=== PATIENT | male | born 1950 | race Caucasian/White ===

== ENCOUNTER 2017-10-28 10:17 | Emergency (ER) | payer BC ==
[~2017-10-28] VITALS: Ht 180.3 cm; Wt 110.0 kg
[2017-10-28 10:21] VITALS: BP 152/82; PULSE 106; RESP 20; TEMP 98; O2SAT 99
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
[2017-10-28] MEDS ORDERED: TETANUS/DIPHTHERIA TOXOID ADULT 0.5 ML VIAL IM ONE (11:30)
[2017-10-28] MEDS ORDERED: CEPHALEXIN MONOHYDRATE 500 MG CAP PO ONE (11:30)
[2017-10-28] MEDS ORDERED: LIDOCAINE 1%/EPINEPHrine 1:100,000 SOLN 20 ML VIAL INFIL ONE (11:30)
[2017-10-28] MEDS ORDERED: traMADol HCL 50 MG TAB PO ONE (11:30)
[2017-10-28] MEDS ORDERED: LIDOCAINE 1%/EPINEPHrine 1:100,000 SOLN 30 ML VIAL ONE (11:56)
[2017-10-28 12:31] VITALS: RESP 18
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
[2017-10-28] MEDS ORDERED: IBUP-232 PO (13:00)
[2017-10-28] MEDS ORDERED: TRAM50TA PO (13:00)
[2017-10-28] MEDS ORDERED: CEPH-460 PO (13:00)
[2017-10-28 13:18] VITALS: BP 134/74
== END 2017-10-28 13:18 | disposition home or self-care (01) ==
LOC: NEPD 10:17
DX: S91.011A Laceration without foreign body, right ankle, initial encounter (principal); V28.9XXA Unspecified motorcycle rider injured in noncollision transport accident in traffic accident, initial encounter; Z23 Encounter for immunization
CPT/HCPCS: 12002; 73610; 90471; 90714

== ENCOUNTER 2018-07-11 06:56 | Inpatient (IN) ==
[2018-07-11] MEDS ORDERED: Chlorhexidine Gluconate 2% 1 Pack (2 Cloths) TOPICAL ONE (08:45)
[2018-07-11] MEDS ORDERED: Chlorhexidine 4% Topical 120 APPLIC/120 ML Bottle TOPICAL SCH (08:45)
[2018-07-11] MEDS ORDERED: Sodium Chlor 0.9% Inj 500 ML IV.CONT ONE (08:45)
[2018-07-11] MEDS ORDERED: Metoprolol Tartrate 25 MG Tablet PO ONE (08:45)
[2018-07-11] MEDS ORDERED: Vancomycin Inj 1,000 MG in Sodium Chlor 0.9% Inj 250 ML IV.SIG SCH (09:00)
[2018-07-11] MEDS ORDERED: Sodium Chlor 0.9% Inj 40 ML, Bupivacaine Liposo PF 1.3% Inj 20 ML P-ARTICULR ONE ×2 (09:00)
[2018-07-11] MEDS ORDERED: TRANEXAMIC ACID IV.SIG SCH (09:00)
[2018-07-11] MEDS ORDERED: SODIUM CHLOR 0.9% IV.SIG SCH (09:00)
[2018-07-11] MEDS ORDERED: Famotidine PF Inj 20 MG/2 ML Vial ONE (09:43)
[2018-07-11] MEDS ORDERED: fentaNYL Citrate Inj 100 MCG/2 ML Ampul ONE (09:43)
[2018-07-11] MEDS ORDERED: fentaNYL Citrate Inj 250 MCG/5 ML Ampul ONE (09:43)
[2018-07-11] MEDS ORDERED: Ketamine Inj 50 MG/5 ML Syringe IV.PUSH ONE (10:09)
[2018-07-11] MEDS: ceFAZolin 2 GM Premix Inj 2 GM/50 ML PIGGYBACK IV.SIG SCH ×2 (10:09→16:10)
--- NOTE | 2018-07-11 13:34 | XR ---
EXAM DATE: 07/11/2018 12:41 PM EST AGE/SEX: 68 years / Male INDICATIONS: Right anterior hip replacement. CLINICAL DATA: This is the patient's initial encounter. Patient reports that signs and symptoms have been present for 1 day and indicates a pain score of Nonresponsive. MEDICAL/SURGICAL HISTORY: None. None. COMPARISON: . FINDINGS: Single view of the right hip demonstrates orthopedic hardware in excellent position. There is no evid ence of complication CONCLUSION: Orthopedic hardware in excellent position. Electronically signed by: Reggie Willis MD 07/11/2018 1:33 PM EST
[2018-07-11] MEDS ORDERED: Bisacodyl 10 MG Supp RECTAL PRN (14:04)
[2018-07-11] MEDS ORDERED: oxyCODONE/Acetaminophen 10/325 Tablet PO PRN (14:04)
[2018-07-11] MEDS ORDERED: Post-op Orders (for Pharmacy) OTHER STA (14:04)
[2018-07-11] MEDS ORDERED: HYDROmorphone PF Inj 1 MG/ML Ampul IV.PUSH PRN (14:04)
[2018-07-11] MEDS ORDERED: Aluminum/Magnesium/Simethacone Susp 30 ML UDC PO PRN (14:04)
[2018-07-11] MEDS ORDERED: ALPRAZolam 0.5 MG Tablet PO PRN (14:12)
[2018-07-11] MEDS ORDERED: Tranexamic Acid Inj 1,000 MG in Sodium Chlor 0.9% Inj 100 ML IV.SIG SCH (15:00)
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
[2018-07-11] MEDS: oxyCODONE/Acetaminophen 10/325 Tablet PO PRN (16:17)
[2018-07-11] MEDS: Multivitamin/Minerals Therapeutic Tablet PO SCH (20:30)
[2018-07-11] MEDS: Senna/Docusate Sodium 8.6/50 MG Tablet PO SCH (20:30)
[2018-07-11] MEDS ORDERED: Zolpidem Tartrate 5 MG Tablet PO PRN (21:00)
--- NOTE | 2018-07-11 21:27 | P.OP ---
- Preoperative Diagnosis (1) Osteoarthritis of right hip - Postoperative Diagnosis (1) Osteoarthritis of right hip Date of procedure: 07/11/18 Procedure: Right total hip arthroplasty-anterior approach Implants: [employer] Vinnie size 20 rosales femoral stem with a +8.536 mm ceramic femoral head and a 56 mm acetabular component with neutral polyethylene Anesthesia: MONIKA Surgeon: Jose Langford MD Outboard Motorboat Operator: Oseas Gallegos Estimated blood loss (mL): 500 Operation and Findings: The patient was brought to the operating room. He is placed under anesthesia. He was placed on a well-padded hand table. The right hip was prepped and draped in usual sterile fashion. IV antibiotics were given. Timeout was completed. Resident Care Spec films were obtained of the pelvis. We reviewed the preoperative workup films from the office which were present via computer in the operating room. We proceeded with anterior approach to the right hip. Meticulous hemostasis was achieved. This was taken down to the fascial layer. Incision was made overlying the fascia of the tensor fascia dayan. The anterior approach interval was performed with coagulation of the circumflex vessels. A capsulotomy was performed. A femoral neck cut was used with guidance from fluoroscopy. We proceeded to release the entire capsule along the neck superiorly and inferiorly and along the posterior surface to improve the femoral mobility. Deep retractors were placed about the acetabulum. The labrum was resected. We proceeded with subsequent sequential reaming of the acetabulum up to size 55 mm. We impacted a 56 mm Jewell acetabulum component. Hole eliminator was placed. A neutral polyethylene for 36 mm head was placed. We again evaluated fluoroscopically. We then maximally externally rotated the hip and dropped and crossed underneath the opposite limb. We proceeded with a box osteotome then a canal finder and then sequentially broaching with the small broach then multiple sizes all the way up to size 18. With the size [address] we did our trial reduction and assess our leg lengthening. Based on preoperative planning our ultimate goal would be to lengthen by 20 mm to stabilize and neutralize the pelvis. The local pole of the muscles would limit this maximum lengthening. In assessing the 18 mm trial wheeze appeared to lengthen by about 10 mm. And it did appear that we could go up in size. Therefore we did go up to 20 mm broach and ultimately the 20 mm prosthesis. Final prosthesis was placed. We assessed neck lengths and eventually the final product selected was the 8.5 mm length 36 mm ceramic femoral head. This was placed. We proceeded to inject long-acting Marcaine. We thoroughly irrigated out with copious amounts of irrigation. Hemostasis was very good. We then proceeded to close in layers of absorbable suture. Subcuticular on the skin. Steri-Strips applied. The patient was awoken and returned to recovery room in stable condition. The cement tester assistant is an advanced registered nurse practitioner. His skill set was medically necessary for the performance of the operation.
[2018-07-11] MEDS: ceFAZolin 1 GM Premix Inj 1 GM/50 ML FROZ.PIGGY IV.SIG SCH (22:07)
[2018-07-12] MEDS: ceFAZolin 1 GM Premix Inj 1 GM/50 ML FROZ.PIGGY IV.SIG SCH (03:20)
[2018-07-12] MEDS: oxyCODONE/Acetaminophen 10/325 Tablet PO PRN ×2 (03:21→14:10)
[2018-07-12 06:06] LABS: Hematocrit 30.5 % (39.0-51.0); Hemoglobin 10.8 gm/dL (13.0-17.0)
[2018-07-12 08:49] VITALS: RESP 18
[2018-07-12] MEDS: Senna/Docusate Sodium 8.6/50 MG Tablet PO SCH (09:37)
[2018-07-12] MEDS: Multivitamin/Minerals Therapeutic Tablet PO SCH (09:37)
--- NOTE | 2018-07-12 12:35 | P.PN ---
Subjective Interval history: Follow-up visit for right hip arthroplasty. Patient seen and examined resting in bed comfortably in no acute distress. He reports that he has been ambulating in his room as well as ambulated in the [place] with the assistance of physical therapy. He denies any shortness of breath, cough, chest pain, palpitations, fevers, chills, nausea, vomiting or diarrhea. He reports he and his vital signs taken shortly after walking the hallway. Physical Exam Vital signs: Vital Signs 07/11/18 13:16 07/11/18 13:30 07/11/18 13:45 Temperature 97.8 F Pulse Rate 118 H 106 H 102 H Respiratory Rate 14 14 13 Blood Pressure 139/80 142/76 H 142/80 H Pulse Oximetry 98 97 93 L 07/11/18 14:00 07/11/18 14:15 07/11/18 14:30 Temperature Pulse Rate 98 H 95 H 95 H Respiratory Rate 12 14 14 Blood Pressure 143/81 H 140/78 140/78 Pulse Oximetry 95 96 96 07/11/18 15:00 07/11/18 16:00 07/11/18 20:00 Temperature 97.6 F 97.6 F 97.8 F Pulse Rate 96 H 98 H 114 H Respiratory Rate 13 18 17 Blood Pressure 151/83 H 158/83 H 126/75 Pulse Oximetry 96 99 93 L 07/11/18 23:31 07/12/18 04:00 07/12/18 06:00 Temperature 98.7 F 98.5 F 98.5 F Pulse Rate 107 H 110 H 110 H Respiratory Rate 16 17 17 Blood Pressure 128/75 133/71 133/71 Pulse Oximetry 93 L 94 L 94 L 07/12/18 08:00 Temperature 98.1 F Pulse Rate 121 H Respiratory Rate 18 Blood Pressure 139/76 Pulse Oximetry 95 Intake & Output 07/11/18 07/12/18 07/12/18 18:59 06:59 18:59 Intake Total 3709.94 / 3709.94 100 / 100 Output Total 875 / 875 Balance 2834.94 / 2834.94 100 / 100 Weight 119.6 kg 124.3 kg Intake: IV 1167.94 / 1167.94 100 / 100 LR 1000 mL Inj 1,000 ML @ 80 600 / 600 mls/hr IV.CONT .[id number] [facility] Rx# :[id number] Cyklokapron Inj 1,794 MG In NS 117.94 / 117.94 Inj 100 ML @ 200 mls/hr IV.SIG ONCE [facility] Rx#:[id number] Vancomycin Inj 1,000 MG In NS 250 / 250 Inj 250 ML @ 250 mls/hr IV.SIG [employer] [facility] Rx#:[id number] Ancef 1 GM Premix Inj 1 gm In 100 / 100 50 ml @ 100 mls/hr IV.SIG Q6H [facility] Rx#:[id number] Ancef 2 GM Premix Inj 2 gm In 100 / 100 50 ml @ 100 mls/hr IV.SIG [employer] [facility] Rx#:[id number] Ancef Inj 1,000 MG In NS Inj 100 / 100 100 ML @ 200 mls/hr IV.SIG Q6H [facility] Rx#:[id number] Oral 960 / 960 Anesthesia Amount 1582 / 1582 Output: Urine 375 / 375 Estimated Blood Loss 500 / 500 Other: # Voids 5 Date of Last Bowel Movement 07/11/18 # Bowel Movements 0 Weight On Admission 119.6 kg Narrative: GENERAL: Well-developed, well-nourished male in no acute distress. SKIN: Warm and dry. Right hip dry with quater size blood donaldo noted, dry. Surrounding area soft with trace edema. HEAD: Atraumatic. Normocephalic. EYES: Pupils equal and round. No scleral icterus. No injection or drainage. ENT: No nasal bleeding or discharge. Mucous membranes pink and moist. NECK: Trachea midline. CARDIOVASCULAR: Regular rate and rhythm. RESPIRATORY: No accessory muscle use. Clear to auscultation. Breath sounds equal bilaterally. GASTROINTESTINAL: Abdomen soft, non-tender, nondistended. + Bowel sounds MUSCULOSKELETAL: Extremities without clubbing, cyanosis, or edema. No obvious deformities. NEUROLOGICAL: Awake, alert, oriented x3. No obvious cranial nerve deficits. Motor grossly within normal limits. Normal speech. PSYCHIATRIC: Appropriate mood and affect; insight and judgment normal. Results - Labs CBC & Chem 7: 07/12/18 05:13 Laboratory Results - last 24 hr 07/12/18 05:13 Hgb 10.8 L Hct 30.5 L - Imaging Impressions Hip X-Ray 07/11/18 00:00 CONCLUSION: Orthopedic hardware in excellent position. Assessment and Plan - Plan 68-year-old male with past medical history of hypertension and hyperlipidemia who presents to [facility] for scheduled right hip arthroplasty. Right hip arthroplasty -Pain control with Percocet -PT consulted -Orthopedic services following Hypertension, chronic, well controlled Hyperlipidemia, chronic -Continue losartan and statin -BP stable, tachycardia noted this morning (this was taken after ambulation and exertion) DVT prophylaxisper orthopedic services Discussed Condition With: Patient, , RN. Discharge Planning: DC today
--- NOTE | 2018-07-12 12:40 | P.DCO ---
- Physical Therapy Order: Evaluate and treat, Improve ambulation, Strength and gait training - Home Health Nursing Order: Medical education, Signs/symptoms of disease process - Case Management Consult Case Management Consult-Home Health: Yes - Certification I have seen patient Julius Hazel on 07/12/18. My clinical findings support the need for the requested home health care services because: Limited mobility due to disease progression I certify that my clinical findings support that this patient is homebound because: Post-op weakness
[2018-07-12 12:43] VITALS: BP 134/67; PULSE 99; TEMP 98.4; O2SAT 94
--- NOTE | 2018-07-12 18:55 | P.PNOP ---
Subjective Interval history: Pain controlled Physical Exam Vital signs: Vital Signs 07/11/18 20:00 07/11/18 23:31 07/12/18 04:00 Temperature 97.8 F 98.7 F 98.5 F Pulse Rate 114 H 107 H 110 H Respiratory Rate 17 16 17 Blood Pressure 126/75 128/75 133/71 Pulse Oximetry 93 L 93 L 94 L 07/12/18 06:00 07/12/18 08:00 07/12/18 12:00 Temperature 98.5 F 98.1 F 98.4 F Pulse Rate 110 H 121 H 99 H Respiratory Rate 17 18 18 Blood Pressure 133/71 139/76 134/67 Pulse Oximetry 94 L 95 94 L Intake & Output 07/11/18 07/12/18 07/12/18 18:59 06:59 18:59 Intake Total 3709.94 / 3709.94 100 / 100 Output Total 875 / 875 Balance 2834.94 / 2834.94 100 / 100 Weight 119.6 kg 124.3 kg Intake: IV 1167.94 / 1167.94 100 / 100 LR 1000 mL Inj 1,000 ML @ 80 600 / 600 mls/hr IV.CONT .[id number] [facility] Rx# :[id number] Cyklokapron Inj 1,794 MG In NS 117.94 / 117.94 Inj 100 ML @ 200 mls/hr IV.SIG ONCE [facility] Rx#:[id number] Vancomycin Inj 1,000 MG In NS 250 / 250 Inj 250 ML @ 250 mls/hr IV.SIG [employer] [facility] Rx#:[id number] Ancef 1 GM Premix Inj 1 gm In 100 / 100 50 ml @ 100 mls/hr IV.SIG Q6H [facility] Rx#:[id number] Ancef 2 GM Premix Inj 2 gm In 100 / 100 50 ml @ 100 mls/hr IV.SIG [employer] [facility] Rx#:[id number] Ancef Inj 1,000 MG In NS Inj 100 / 100 100 ML @ 200 mls/hr IV.SIG Q6H [facility] Rx#:[id number] Oral 960 / 960 Anesthesia Amount 1582 / 1582 Output: Urine 375 / 375 Estimated Blood Loss 500 / 500 Other: # Voids 5 Date of Last Bowel Movement 07/11/18 # Bowel Movements 0 Weight On Admission 119.6 kg - Constitutional no acute distress (Right hip), mild distress - Additional findings Additional findings: Right hip dressing intact neuro intact vascular intact Results - Labs CBC & Chem 7: 07/12/18 05:13 Laboratory Results - last 24 hr 07/12/18 05:13 Hgb 10.8 L Hct 30.5 L Assessment and Plan - Ortho Post Op Day # 1 (Right total hip arthroplasty) - Assessment and Plan Patient is doing better than excepted ASA 81 mg BID Percocet for pain Weight bearing as tolerated Ok to d/C home [facility]
== END 2018-07-12 14:26 | disposition home health service (06) ==
LOC: HSDC 06:56 → EDSTATUS 10:15 → HSDI 14:15 → HCIS 14:32 → N06 15:24
PROVIDERS: ADMIT Orthopaedic Surgery Sports Medicine; ATTEND Orthopaedic Surgery Sports Medicine